=== PATIENT | female | born 1935 | race Caucasian/White ===

== ENCOUNTER 2016-05-11 18:25 | Emergency (ER) | payer OTHER ==
[~2016-05-11] VITALS: Ht 182.9 cm; Wt 96.5 kg
[~2016-05-11 18:25] MED LIST: ALEN70TA2 PO; DONE10TA12 PO; LEVE250T PO; PARO30TA4 PO; WARF5TAB90 PO
[2016-05-11 18:31] VITALS: TEMP 36.8; Ht 182.9 cm; Wt 96.5 kg
[2016-05-11] MEDS ORDERED: ANAS1TAB19 PO (18:59)
[2016-05-11] MEDS ORDERED: SIMV10TA5 PO (18:59)
[2016-05-11 19:00] VITALS: O2SAT 98
[2016-05-11 19:11] LABS: HEMATOCRIT 39.9 % (37-47); MEAN CELL VOLUME 90.7 fL (80-100); MEAN CORPUSCULAR HEMOGLOBIN 31.4 pg (25-34); MEAN CORPUSCULAR HGB CONC 34.6 g/dl (32-36); MEAN PLATELET VOLUME 10.9 fL (7.4-10.4); PLATELET COUNT 281 K/uL (130-400); WHITE BLOOD COUNT 5.11 K/uL (4.8-10.8)
--- NOTE | 2016-05-11 19:20 | DIAGNOSTIC IMAGING REPORT ---
SINGLE VIEW CHEST CLINICAL HISTORY: Fever. Sepsis. FINDINGS: 2 AP, portable, upright chest radiographs are compared to study dated 11/29/2014 and correlated with chest CT dated 12/20/2013. The examination is degraded by portable technique and patient rotation. The heart is enlarged and there is atherosclerotic calcification of the thoracic aorta. The pulmonary vasculature is noncongested. Chronic interstitial thickening and mild nodularity is similar to previous. No airspace consolidation, pleural effusion, or pneumothorax is seen. Tiny calcified granulomas are observed. The skeletal structures are osteopenic. Degenerative changes noted throughout the thoracic spine. IMPRESSION: Cardiac enlargement with no acute cardiopulmonary abnormality. Electronically signed by: Jose Alfredo White M.D. 05/11/2016 7:19 PM Dictated Date/Time: 05/11/2016 7:17 PM
[2016-05-11 19:22] LABS: INR 2.3 (0.9-1.1); PARTIAL THROMBOPLASTIN RATIO 1.4; PROTHROMBIN TIME (PATIENT) 25.6 SECONDS (9.0-12.0)
[2016-05-11 19:36] LABS: ALKALINE PHOSPHATASE 60 U/L (45-117); ALT/SGPT 28 U/L (12-78); AST/SGOT 21 U/L (15-37); BLOOD UREA NITROGEN 9 mg/dl (7-18); CALCIUM 8.1 mg/dl (8.5-10.1); CARBON DIOXIDE 29 mmol/L (21-32); CHLORIDE 108 mmol/L (98-107); CREATININE 0.92 mg/dl (0.60-1.20); GLUCOSE 97 mg/dl (70-99); POTASSIUM 3.7 mmol/L (3.5-5.1); SODIUM 143 mmol/L (136-145)
[2016-05-11] MEDS ORDERED: PARO30TA PO (19:40)
[2016-05-11] MEDS ORDERED: LEVE500T PO (19:49)
[2016-05-11] MEDS ORDERED: WARF5TAB90 PO (19:52)
--- NOTE | 2016-05-11 19:57 | EMERGENCY ROOM VISIT NOTE ---
History Report prepared by Marco: Jasson Linares Under the Supervision of: Dr. Abel Banegas D.O. First contact with patient: 18:49 Chief Complaint: CARDIAC ASSESSMENT Stated Complaint: CHEST PAIN Nursing Triage Summary: Patient c/o intermittent 5.5/10 chest pain that started yesterday on left side of chest. Denies radiation. C/o SOB. Denies diaphoresis, N/V. History of Present Illness The patient is a 80 year old female who presents to the Emergency Room with complaints of intermittent chest pain beginning yesterday. She notes the pain was off and on yesterday, and has had 2 or 3 episodes today. She describes the pain as suddenly sharp, and states it feels like a heart attack, though she denies any history of a heart attack. She locates the pain under her left breast , and notes it radiates up to her neck. The patient adds that she also became lightheaded with the pain. She notes the pain is not initiated with walking, and that it resolves usually after an hour. The patient denies having any pain currently. Source of History: patient Onset: yesterday Position: chest Quality: sharp Timing: intermittent Associated Symptoms: + neck pain Note: The patient notes having lightheadedness. Review of Systems See HPI for pertinent positives & negatives. A total of 10 systems reviewed and were otherwise negative. Past Medical & Surgical Medical Problems: (1) Alzheimer's Disease (2) Anxiety State Nos (3) Breast Neoplasm Nos (4) Chest wall pain (5) Esophageal Reflux (6) Mitral valve prolapse (7) Trans Cereb Ischemia Nos Family History Cancer Diabetes mellitus FH: heart disease FH: lung disease Hypertension Social History Smoking Status: Never Smoker Alcohol Use: none Drug Use: none Marital Status: single Housing Status: lives with family Occupation Status: retired Current/Historical Medications Scheduled Alendronate Sodium (Fosamax), 70 MG PO WK Anastrozole (Arimidex), 1 MG PO DAILY Donepezil Hydrochloride (Aricept), 10 MG PO DAILY Levetiractam (Levetiracetam), 250 MG PO BID Paroxetine Hcl (Paxil), 30 MG PO DAILY Simvastatin (Zocor), 10 MG PO QPM Warfarin Sodium (Coumadin), 5 MG PO FRIDAYS Warfarin Sodium (Coumadin), 2.5 MG PO [id number] Allergies Coded Allergies: No Known Allergies (Unverified , 05/14/15) Physical Exam Vital Signs Date Time Temp Pulse Resp B/P Pulse Ox O2 Delivery O2 Flow Rate FiO2 05/11/16 19:01 61 05/11/16 19:00 98 Room Air 05/11/16 18:50 99 Room Air 05/11/16 18:31 36.8 85 20 109/69 97 Room Air Physical Exam CONSTITUTIONAL/VITAL SIGNS: Reviewed / noted above. GENERAL: Non-toxic in appearance. INTEGUMENTARY: Warm, dry, and [place]. HEAD: Normocephalic. EYES: without scleral icterus or trauma. ENT/OROPHARYNX: clear and moist. LYMPHADENOPATHY/NECK: Is supple without lymphadenopathy or meningismus. RESPIRATORY: Lungs clear and equal. CARDIOVASCULAR: Regular rate and rhythm. GI/ABDOMEN: Soft and nontender. No organomegaly or pulsatile mass. No rebound or guarding. Normal bowel sounds. EXTREMITIES: Warm and well perfused. BACK: No CVA tenderness. NEUROLOGICAL: Intact without focal deficits. PSYCHIATRIC: normal affect. MUSCULOSKELETAL: Normally developed with good muscle tone. Medical Decision & Procedures ER Provider Diagnostic Interpretation: Radiology results as stated below per my review and radiologist interpretation: SINGLE VIEW CHEST FINDINGS: 2 AP, portable, upright chest radiographs are compared to study dated 11/29/2014 and correlated with chest CT dated 12/20/2013. The examination is degraded by portable technique and patient rotation. The heart is enlarged and there is atherosclerotic calcification of the thoracic aorta. The pulmonary vasculature is noncongested. Chronic interstitial thickening and mild nodularity is similar to previous. No airspace consolidation, pleural effusion, or pneumothorax is seen. Tiny calcified granulomas are observed. The skeletal structures are osteopenic. Degenerative changes noted throughout the thoracic spine. IMPRESSION: Cardiac enlargement with no acute cardiopulmonary abnormality. Electronically signed by: Jose Alfredo White M.D. 05/11/2016 7:19 PM Dictated Date/Time: 05/11/2016 7:17 PM Laboratory Results 05/11/16 19:00 Red Blood Count 4.40, Mean Corpuscular Volume 90.7, Mean Corpuscular Hemoglobin 31.4, Mean Corpuscular Hemoglobin Concent 34.6, Mean Platelet Volume 10.9, Neutrophils (%) (Auto) 32.2, Lymphocytes (%) (Auto) 56.2, Monocytes (%) (Auto) 8.8, Eosinophils (%) (Auto) 2.0, Basophils (%) (Auto) 0.6, Neutrophils # (Auto) 1.65, Lymphocytes # (Auto) 2.87, Monocytes # (Auto) 0.45, Eosinophils # (Auto) 0.10, Basophils # (Auto) 0.03 05/11/16 19:00 Test 05/11/16 19:00 White Blood Count 5.11 K/uL (4.8-10.8) Red Blood Count 4.40 M/uL (4.2-5.4) Hemoglobin 13.8 g/dL (12.0-16.0) Hematocrit 39.9 % (37-47) Mean Corpuscular Volume 90.7 fL (80-100) Mean Corpuscular Hemoglobin 31.4 pg (25-34) Mean Corpuscular Hemoglobin Concent 34.6 g/dl (32-36) Platelet Count 281 K/uL (130-400) Mean Platelet Volume 10.9 fL (7.4-10.4) Neutrophils (%) (Auto) 32.2 % Lymphocytes (%) (Auto) 56.2 % Monocytes (%) (Auto) 8.8 % Eosinophils (%) (Auto) 2.0 % Basophils (%) (Auto) 0.6 % Neutrophils # (Auto) 1.65 K/uL (1.4-6.5) Lymphocytes # (Auto) 2.87 K/uL (1.2-3.4) Monocytes # (Auto) 0.45 K/uL (0.11-0.59) Eosinophils # (Auto) 0.10 K/uL (0-0.5) Basophils # (Auto) 0.03 K/uL (0-0.2) RDW Standard Deviation 44.0 fL (36.4-46.3) RDW Coefficient of Variation 13.3 % (11.5-14.5) Immature Granulocyte % (Auto) 0.2 % Immature Granulocyte # (Auto) 0.01 K/uL (0.00-0.02) Prothrombin Time 25.6 SECONDS (9.0-12.0) Prothromb Time International Ratio 2.3 (0.9-1.1) Activated Partial Thromboplast Time 37.4 SECONDS (21.0-31.0) Partial Thromboplastin Ratio 1.4 Anion Gap 6.0 mmol/L (3-11) Est Creatinine Clear Calc Drug Dose 65.6 ml/min Estimated GFR () 69.1 Estimated GFR (Non- 59.6 BUN/Creatinine Ratio 10.0 (10-20) Calcium Level 8.1 mg/dl (8.5-10.1) Total Bilirubin 0.4 mg/dl (0.2-1) Direct Bilirubin mg/dl (0-0.2) Aspartate Amino Transf (AST/SGOT) 21 U/L (15-37) Alanine Aminotransferase (ALT/SGPT) 28 U/L (12-78) Alkaline Phosphatase 60 U/L (45-117) Total Creatine Kinase 66 U/L (26-192) Creatine Kinase MB < 0.5 ng/ml (0.5-3.6) Creatine Kinase MB Ratio (0-3.0) Troponin I < 0.015 ng/ml (0-0.045) Total Protein 8.0 gm/dl (6.4-8.2) Albumin 3.4 gm/dl (3.4-5.0) Lipase 173 U/L (73-393) Chemistry Specimen Hemolysis Laboratory results as stated above per my review. ECG Indication: chest pain Rate (beats per minute): 61 Rhythm: normal sinus, other (sinus arrhythmia) Findings: no acute ischemic change, no ectopy ED Course 1858: Previous medical records were reviewed. The patient was evaluated in room C1B. A complete history and physical examination was performed. 1999: On reevaluation, the patient is doing well. I discussed the results and findings with the patient. She verbalized agreement of the treatment plan. The patient was discharged home. Medical Decision the differential was considered includes acute myocardial infarction, acute coronary syndrome, myocarditis, pericarditis, pericardial effusions /tamponade, esophageal perforation, thoracic aortic dissection, pulmonary embolism, pneumonia, pneumothorax, pancreatitis, shingles, acute cholecystitis, perforated abdominal viscus. This is a 72-year-old female who presents to the ED with a chief complaint of left-sided chest pain. It started yesterday and was off and on all day. She describes it as a sharp pain. Today it happened 2 or 3 times and was also sharp. The patient states that she is currently not having pain. She denies having exertional symptoms. She was a little lightheaded with the sharp chest pain but did not have any shortness of breath and diaphoresis. Her vital signs are normal. She denies previous cardiac history. She shows a normal sinus rhythm. Chest x-ray reveals no acute disease. CBC is normal. Complete metabolic panel was normal. Troponin is negative. INR is 2.3. The patient was told the results of the test. She is felt to be stable for discharge and outpatient follow up. Impression Primary Impression: Precordial chest pain Scribe Attestation The scribe's documentation has been prepared under my direction and personally reviewed by me in its entirety. I confirm that the note above accurately reflects all work, treatment, procedures, and medical decision making performed by me. Departure Information Dispostion Home / Self-Care Referrals Alison Bangura M.D. (MEDICAL) (PCP) Patient Instructions Chest Pain - [facility], [facility] Additional Instructions Follow-up with your doctor for further care and evaluation in 1-2 days. Return to the emergency department for worsening or new symptoms or any concerns. You have been examined and treated today on an emergency basis only. This is not a substitute for, or an effort to provide, complete comprehensive medical care. It is impossible to recognize and treat all injuries or illnesses in a single emergency department visit. It is therefore important that you follow up closely with your doctor. Call as soon as possible for an appointment.
[2016-05-11 19:59] LABS: BASO % 0.6 %; BASO ABS # 0.03 K/uL (0-0.2); COMPLETE YES; IG% 0.2 %; LYMPH % 56.2 %; LYMPH ABS # 2.87 K/uL (1.2-3.4); MONO % 8.8 %; NEUT % 32.2 %
[2016-05-11 20:06] VITALS: BP 150/90; PULSE 74; O2SAT 98
== END 2016-05-11 20:07 | disposition home or self-care (01) ==
LOC: C.EDB 18:28 → C.EDC 20:07
DX: R07.2 Precordial pain (principal); I34.1 Nonrheumatic mitral (valve) prolapse; K21.9 Gastro-esophageal reflux disease without esophagitis; G30.9 Alzheimer's disease, unspecified; F02.80 Dementia in other diseases classified elsewhere, unspecified severity, without behavioral disturbance, psychotic disturbance, mood disturbance, and anxiety; F41.9 Anxiety disorder, unspecified; Z86.73 Personal history of transient ischemic attack (TIA), and cerebral infarction without residual deficits; Z85.3 Personal history of malignant neoplasm of breast; Z79.01 Long term (current) use of anticoagulants; Z79.899 Other long term (current) drug therapy; Z80.9 Family history of malignant neoplasm, unspecified; Z83.3 Family history of diabetes mellitus; Z82.49 Family history of ischemic heart disease and other diseases of the circulatory system

== ENCOUNTER 2016-10-11 13:08 | Emergency (ER) | payer OTHER ==
[~2016-10-11] VITALS: Ht 182.9 cm; Wt 97.8 kg
[~2016-10-11 13:08] MED LIST changes: +ANAS1TAB19 PO; -LEVE250T PO; +LEVE500T PO; +PARO30TA PO; -PARO30TA4 PO; +SIMV10TA5 PO
[2016-10-11] MEDS ORDERED: SODIUM CHLORIDE 0.9% 1000ML 1,000 ML IV STA (13:16)
[2016-10-11] MEDS ORDERED: METOCLOPRAMIDE HCL INJ 5 MG/ML 2 ML VIAL IV STA (13:16)
[2016-10-11 13:19] VITALS: TEMP 36.6; Ht 182.9 cm; Wt 97.8 kg
[2016-10-11 13:42] VITALS: O2SAT 97
--- NOTE | 2016-10-11 14:04 | DIAGNOSTIC IMAGING REPORT ---
CHEST ONE VIEW PORTABLE HISTORY: 81 years-old Female CHEST PAIN COMPARISON: Portable chest radiograph 05/11/2016 TECHNIQUE: Portable upright AP view of the chest FINDINGS: Cardiac silhouette is upper limits of normal, unchanged. There is atherosclerosis of the aorta. No pneumothorax or large pleural effusion. There is subsegmental atelectasis of the left lung base. The bones are grossly intact. IMPRESSION: Subsegmental atelectasis of the left lung base with otherwise unremarkable chest. The above report was generated using voice recognition software. It may contain grammatical, syntax or spelling errors. Electronically signed by: Conrad Brewer M.D. 10/11/2016 2:02 PM Dictated Date/Time: 10/11/2016 2:01 PM
[2016-10-11 14:05] LABS: BASO % 0.8 %; BASO ABS # 0.04 K/uL (0-0.2); COMPLETE YES; HEMATOCRIT 39.3 % (37-47); IG% 0.2 %; LYMPH % 48.5 %; LYMPH ABS # 2.45 K/uL (1.2-3.4); MEAN CELL VOLUME 92.9 fL (80-100); MEAN CORPUSCULAR HGB CONC 33.3 g/dl (32-36); MEAN PLATELET VOLUME 11.3 fL (7.4-10.4); MONO % 11.5 %; PLATELET COUNT 259 K/uL (130-400); RED BLOOD COUNT 4.23 M/uL (4.2-5.4); WHITE BLOOD COUNT 5.05 K/uL (4.8-10.8)
--- NOTE | 2016-10-11 14:08 | DIAGNOSTIC IMAGING REPORT ---
CERVICAL SPINE W/O CT DOSE: 949.50 mGy.cm CLINICAL HISTORY: 81 years-old Female with Neck pain after remote fall. COMPARISON: CT cervical spine 03/25/2015. TECHNIQUE: Multiple axial CT images of the cervical spine were obtained without contrast. A dose lowering technique was utilized adhering to the principles of ALARA. FINDINGS: Vertebral body heights and alignment are normal. No fracture or subluxation is identified. Multilevel degenerative changes are present. Mild posterior intervertebral disc space narrowing is seen at C5-C6 and C6-C7. Moderate to advanced degenerative changes involve C1-C2. Multilevel moderate to severe facet arthropathy is present. No severe central canal stenosis. There is however varying degrees of neural foraminal narrowing which is mostly mild to moderate. There is atherosclerotic plaquing of the carotid bulbs. Nodularity of the thyroid is noted with 1.1 cm inferior left thyroid nodule. Biapical pleural parenchymal scarring is noted. IMPRESSION: 1. No acute cervical spine fracture or dislocation identified. 2. Multilevel degenerative changes of the cervical spine. 3. Additional incidental findings as above. The above report was generated using voice recognition software. It may contain grammatical, syntax or spelling errors. Electronically signed by: Conrad Brewer M.D. 10/11/2016 2:06 PM Dictated Date/Time: 10/11/2016 2:02 PM
--- NOTE | 2016-10-11 14:09 | DIAGNOSTIC IMAGING REPORT ---
HEAD CT NONCONTRAST CT DOSE: HISTORY: Headache on coumadin TECHNIQUE: Multiaxial CT images of the head were performed without the use of intravenous contrast. Automated exposure control was utilized for this study. A dose lowering technique was utilized adhering to the principles of ALARA. Comparison: Head CT 11/29/2014. Findings: The paranasal sinuses and mastoid air cells are clear. The calvarium and skull base are intact. There is no mass, hematoma, midline shift, acute infarct. White matter hypodensity is nonspecific but suggestive of microvascular ischemic change. The ventricles and sulci demonstrate mild age-related involutional changes. Impression: No acute intracranial abnormality. Electronically signed by: Mann Carranza M.D. 10/11/2016 2:07 PM Dictated Date/Time: 10/11/2016 2:02 PM
[2016-10-11 14:14] LABS: INR 1.9 (0.9-1.1); PROTHROMBIN TIME (PATIENT) 21.2 SECONDS (9.0-12.0)
[2016-10-11 14:22] LABS: BLOOD UREA NITROGEN 14 mg/dl (7-18); BUN/CREATININE RATIO 16.7 (10-20); CALCIUM 8.6 mg/dl (8.5-10.1); CARBON DIOXIDE 25 mmol/L (21-32); CHLORIDE 111 mmol/L (98-107); CREATININE 0.86 mg/dl (0.60-1.20); GLUCOSE 86 mg/dl (70-99); POTASSIUM 3.8 mmol/L (3.5-5.1); SODIUM 140 mmol/L (136-145)
--- NOTE | 2016-10-11 14:32 | EMERGENCY ROOM VISIT NOTE ---
History Report prepared by Marco: Ugo Villar Under the Supervision of: Dr. Salo Cantu M.D. First contact with patient: 13:10 Chief Complaint: HEAD PAIN Stated Complaint: HEAD PAIN History of Present Illness The patient is a 81 year old female who presents to the Emergency Room by EMS with complaints of a persistent posterior headache beginning yesterday. Her headache began with gradual onset. Per EMS, the patient is currently being treated for Alzheimer's. They state that the patient has described her pain as "dull", but now describes it as "sharp". They state that the patient was walking around the [email or web address] today. The patient's pain is worsened with moving her head. The patient's family states that the patient appeared somewhat pale with increased shakiness shortly prior to arrival as well. She states that the patient has had increased fatigue recently. The patient denies any neurologic symptoms, but her family feels that she has been "more disoriented than usual" recently. She denies any vomiting, rashes or tick bites, diarrhea, fevers, cough, or congestion. She notes that she gets headaches every day, and takes Advil nearly every day. The patient is on Coumadin. She states that her current headache feels different than her typical headaches. She currently complains of neck pain and nausea. EMS states that the patient may have had a syncopal episode a little over a week ago. She was not seen by a physician for this episode. The patient's family states that the patient was found in an alley near her [place] by a neighbor, and was down for an unknown amount of time. The patient states that her increased fatigue began around the time she passed out last week. Source of History: patient, family, EMS Onset: Yesterday Position: head (posterior) Quality: sharp (currently), dull (previously) Timing: other (persistent) Modifying Factors (Worsening): movement (of her head) Associated Symptoms: + neck pain, + nausea, + fatigue, No fevers, No cough, No vomiting, No diarrhea, No rash Review of Systems See HPI for pertinent positives and negatives. A total of ten systems were reviewed and were otherwise negative. Past Medical & Surgical Medical Problems: (1) Alzheimer's Disease (2) Anxiety State Nos (3) Breast Neoplasm Nos (4) Chest wall pain (5) Esophageal Reflux (6) Mitral valve prolapse (7) Trans Cereb Ischemia Nos Family History Cancer Diabetes mellitus FH: heart disease FH: lung disease Hypertension Social History Smoking Status: Never Smoker Alcohol Use: none Drug Use: none Marital Status: single Housing Status: lives with family Occupation Status: retired Current/Historical Medications Scheduled Alendronate Sodium (Fosamax), 70 MG PO WK Anastrozole (Arimidex), 1 MG PO DAILY Donepezil Hydrochloride (Aricept), 10 MG PO DAILY Levetiractam (Levetiracetam), 250 MG PO BID Paroxetine Hcl (Paxil), 30 MG PO DAILY Simvastatin (Zocor), 10 MG PO QPM Warfarin Sodium (Coumadin), 5 MG PO FRIDAYS Warfarin Sodium (Coumadin), 2.5 MG PO [id number] Allergies Coded Allergies: No Known Allergies (Unverified , 10/11/16) Physical Exam Vital Signs Date Time Temp Pulse Resp B/P (MAP) Pulse Ox O2 Delivery O2 Flow Rate FiO2 10/11/16 17:33 59 18 147/89 98 10/11/16 15:27 58 16 167/82 96 Room Air 10/11/16 14:30 57 18 156/83 96 Room Air 10/11/16 13:42 54 10/11/16 13:42 97 Room Air 10/11/16 13:19 36.6 53 16 191/83 97 Room Air Physical Exam GENERAL: Awake, alert, well-appearing, in no distress HENT: Normocephalic, atraumatic. Oropharynx unremarkable. Dry mucous membranes. Mild tenderness at the base of the right occiput and upper right paraspinal cervical spine. ROM limited secondary to pain. EYES: Normal conjunctiva. Sclera non-icteric. Subtle left ptosis. EOMI. NECK: Supple. No nuchal rigidity. FROM. No JVD. RESPIRATORY: Clear to auscultation. CARDIAC: Regular rate, normal rhythm. Extremities warm and well perfused. Pulses equal. ABDOMEN: Soft, non-distended. No tenderness to palpation. No rebound or guarding. No masses. RECTAL: Deferred. MUSCULOSKELETAL: Chest examination reveals no tenderness. The back is symmetrical on inspection without obvious abnormality. There is no CVA tenderness to palpation. No joint edema. LOWER EXTREMITIES: Calves are equal size bilaterally and non-tender. No edema. No discoloration. NEURO: Normal sensorium. No sensory or motor deficits noted. SKIN: No rash or jaundice noted. Medical Decision & Procedures ER Provider Diagnostic Interpretation: Radiology results as stated below per my review and radiologist interpretation: CERVICAL SPINE W/O FINDINGS: Vertebral body heights and alignment are normal. No fracture or subluxation is identified. Multilevel degenerative changes are present. Mild posterior intervertebral disc space narrowing is seen at C5-C6 and C6-C7. Moderate to advanced degenerative changes involve C1-C2. Multilevel moderate to severe facet arthropathy is present. No severe central canal stenosis. There is however varying degrees of neural foraminal narrowing which is mostly mild to moderate. There is atherosclerotic plaquing of the carotid bulbs. Nodularity of the thyroid is noted with 1.1 cm inferior left thyroid nodule. Biapical pleural parenchymal scarring is noted. IMPRESSION: 1. No acute cervical spine fracture or dislocation identified. 2. Multilevel degenerative changes of the cervical spine. 3. Additional incidental findings as above. The above report was generated using voice recognition software. It may contain grammatical, syntax or spelling errors. Electronically signed by: Conrad Brewer M.D. HEAD CT NONCONTRAST Findings: The paranasal sinuses and mastoid air cells are clear. The calvarium and skull base are intact. There is no mass, hematoma, midline shift, acute infarct. White matter hypodensity is nonspecific but suggestive of microvascular ischemic change. The ventricles and sulci demonstrate mild age-related involutional changes. Impression: No acute intracranial abnormality. Electronically signed by: Mann Carranza M.D CHEST ONE VIEW PORTABLE FINDINGS: Cardiac silhouette is upper limits of normal, unchanged. There is atherosclerosis of the aorta. No pneumothorax or large pleural effusion. There is subsegmental atelectasis of the left lung base. The bones are grossly intact. IMPRESSION: Subsegmental atelectasis of the left lung base with otherwise unremarkable chest. The above report was generated using voice recognition software. It may contain grammatical, syntax or spelling errors. Electronically signed by: Conrad Brewer M.D. Laboratory Results 10/11/16 13:40 Red Blood Count 4.23, Mean Corpuscular Volume 92.9, Mean Corpuscular Hemoglobin 31.0, Mean Corpuscular Hemoglobin Concent 33.3, Mean Platelet Volume 11.3, Neutrophils (%) (Auto) 37.0, Lymphocytes (%) (Auto) 48.5, Monocytes (%) (Auto) 11.5, Eosinophils (%) (Auto) 2.0, Basophils (%) (Auto) 0.8, Neutrophils # (Auto ) 1.87, Lymphocytes # (Auto) 2.45, Monocytes # (Auto) 0.58, Eosinophils # (Auto ) 0.10, Basophils # (Auto) 0.04 10/11/16 13:40 Test 10/11/16 13:40 10/11/16 15:33 White Blood Count 5.05 K/uL (4.8-10.8) Red Blood Count 4.23 M/uL (4.2-5.4) Hemoglobin 13.1 g/dL (12.0-16.0) Hematocrit 39.3 % (37-47) Mean Corpuscular Volume 92.9 fL (80-100) Mean Corpuscular Hemoglobin 31.0 pg (25-34) Mean Corpuscular Hemoglobin Concent 33.3 g/dl (32-36) Platelet Count 259 K/uL (130-400) Mean Platelet Volume 11.3 fL (7.4-10.4) Neutrophils (%) (Auto) 37.0 % Lymphocytes (%) (Auto) 48.5 % Monocytes (%) (Auto) 11.5 % Eosinophils (%) (Auto) 2.0 % Basophils (%) (Auto) 0.8 % Neutrophils # (Auto) 1.87 K/uL (1.4-6.5) Lymphocytes # (Auto) 2.45 K/uL (1.2-3.4) Monocytes # (Auto) 0.58 K/uL (0.11-0.59) Eosinophils # (Auto) 0.10 K/uL (0-0.5) Basophils # (Auto) 0.04 K/uL (0-0.2) RDW Standard Deviation 44.8 fL (36.4-46.3) RDW Coefficient of Variation 13.1 % (11.5-14.5) Immature Granulocyte % (Auto) 0.2 % Immature Granulocyte # (Auto) 0.01 K/uL (0.00-0.02) Prothrombin Time 21.2 SECONDS (9.0-12.0) Prothromb Time International Ratio 1.9 (0.9-1.1) Anion Gap 4.0 mmol/L (3-11) Est Creatinine Clear Calc Drug Dose 69.5 ml/min Estimated GFR () 74.5 Estimated GFR (Non- 64.3 BUN/Creatinine Ratio 16.7 (10-20) Calcium Level 8.6 mg/dl (8.5-10.1) Troponin I < 0.015 ng/ml (0-0.045) Lyme Disease IgG Antibody NEG (NEG) Lyme Disease IgM Antibody NEG (NEG) Urine Color YELLOW Urine Appearance CLEAR (CLEAR) Urine pH 6.0 (4.5-7.5) Urine Specific [place] 1.012 (1.000-1.030) Urine Protein NEG (NEG) Urine Glucose (UA) NEG (NEG) Urine Ketones NEG (NEG) Urine Occult Blood NEG (NEG) Urine Nitrite NEG (NEG) Urine Bilirubin NEG (NEG) Urine Urobilinogen NEG (NEG) Urine Leukocyte Esterase NEG (NEG) Laboratory results reviewed by me Medications Administered Medications (Trade) Dose Ordered Sig/[place] Route Start Time Stop Time Status Last Admin Dose Admin Sodium Chloride 1,000 ml @ 125 mls/hr Q8H STAT IV 10/11/16 13:16 10/11/16 18:36 DC 10/11/16 14:04 125 MLS/HR Metoclopramide HCl (Reglan Inj) 10 mg NOW STAT IV 10/11/16 13:16 10/11/16 13:32 DC 10/11/16 14:03 10 MG Dexamethasone Sodium Phosphate (Decadron Inj) 10 mg NOW ONCE IV 10/11/16 16:45 10/11/16 16:46 DC 10/11/16 16:46 10 MG ECG Indication: syncope Rate (beats per minute): 72 Rhythm: normal sinus Findings: no acute ischemic change, other (Normal axis. ) ED Course 1314: The patient was evaluated in room C11B. A complete history and physical exam was performed. 1316: Ordered Reglan Inj 10 mg IV, Sodium Chloride 1000 ml @ 125 mls/hr IV. 1615: I reassessed the patient. Her pain is unchanged. 1645: Ordered Decadron Inj 10 mg IV. 1720: I reevaluated the patient. She would like to go home. Discussed results and discharge instructions: she verbalized understanding and agreement. The patient is ready for discharge. Medical Decision I reviewed the patient's past medical history, medications, and the nursing notes as described above. Triage Nursing notes reviewed. The patient's presentation and history were concerning for tension headache, migraine, ICH, dehydration, electrolyte abnormality, cervical fracture, worsening dementia, and CVA. Patient is a 81-year-old woman with a past medical history of Alzheimer's, PE on Coumadin, hypertension presents emergency Department with headache that began last night with slow onset at the base of her occiput that progressively has worsened throughout the day per history of present illness. All of the patient is well-appearing, in no acute distress. Afebrile stable vital signs. On exam the patient has a very subtle left lid ptosis that the patient's daughter believes is new although the patient's daughter lives in [place] and does not see the patient regularly. Otherwise the patient is neurologically intact. Testing the patient had a unwitnessed fall, syncope last week without any medical follow-up CT scan was done which was unremarkable. Moreover CT of the cervical spine in the setting of neck pain was also unremarkable for any acute findings. Patient does report prior history of recurrent headaches but these are typically frontal. Should symptoms today can be consistent with a tension headache with paraspinal tenderness extending to the lower right occiput. Patient being treated with IV fluids and Reglan. Otherwise EKG was unremarkable. Labs including troponin also negative. UA negative. Patient still with pain and so given dexamethasone with good effect and resolution of her pain. Findings reviewed and plan for follow-up d/w patient. Patient agreeable and d/c'd per discharge instructions. Medication Reconcilliation Current Medication List: was personally reviewed by me Blood Pressure Screening Patient's blood pressure: Elevated blood pressure Blood pressure disposition: Referred to PCP Impression Primary Impression: Tension headache Additional Impression: Torticollis, unspecified Scribe Attestation The scribe's documentation has been prepared under my direction and personally reviewed by me in its entirety. I confirm that the note above accurately reflects all work, treatment, procedures, and medical decision making performed by me. Departure Information Dispostion Home / Self-Care Referrals Alison Bangura M.D. (MEDICAL) (PCP) Patient Instructions Headaches Tension, My [facility], Torticollis Additional Instructions Please follow up with your primary care physician in the next 1-3 days for re- evaluation and possible physical therapy referral. You should also have your INR rechecked since you were given a steroid medication today for your pain. Otherwise, your exam, lab results, and CT scan did not show signs of an emergent condition at this time. Acetaminophen as needed for pain. Heating pad for 20 minute intervals throughout the day for additional muscle relaxation. Return to the emergency department for worsening symptoms as described in the accompanying instructions. Problem Qualifiers
[2016-10-11 15:07] LABS: LYME DISEASE AB IGG NEG (NEG); LYME DISEASE AB IGM NEG (NEG)
[2016-10-11 15:53] LABS: URINE APPEARANCE CLEAR (CLEAR); URINE BILIRUBIN NEG (NEG); URINE COLOR YELLOW; URINE NITRITE NEG (NEG); URINE SPECIFIC GRAVITY 1.012 (1.000-1.030); UROBILINOGEN NEG (NEG); ZZUR CULT IF INDIC CLEAN CATCH NO
[2016-10-11 15:59] LABS: MANUAL MICROSCOPIC REQUIRED? NO; REVIEW REQ? NO
[2016-10-11] MEDS ORDERED: DEXAMETHASONE SOD INJ 10 MG/ML VIAL IV ONE (16:45)
[2016-10-11 17:33] VITALS: BP 147/89; PULSE 59; O2SAT 98
== END 2016-10-11 17:34 | disposition home or self-care (01) ==
LOC: EDBD 13:08 → C.EDC 13:09
DX: G44.209 Tension-type headache, unspecified, not intractable (principal); M43.6 Torticollis; G30.9 Alzheimer's disease, unspecified; F02.80 Dementia in other diseases classified elsewhere, unspecified severity, without behavioral disturbance, psychotic disturbance, mood disturbance, and anxiety; F41.9 Anxiety disorder, unspecified; K21.9 Gastro-esophageal reflux disease without esophagitis; G45.9 Transient cerebral ischemic attack, unspecified; Z83.3 Family history of diabetes mellitus; Z82.49 Family history of ischemic heart disease and other diseases of the circulatory system; Z79.01 Long term (current) use of anticoagulants

== ENCOUNTER 2017-03-29 21:53 | Observation (INO) | payer OTHER ==
[~2017-03-29] VITALS: Ht 182.9 cm; Wt 96.1 kg
--- NOTE | 2017-03-29 22:44 | EMERGENCY ROOM VISIT NOTE ---
History Report prepared by Marco: Tapan Hernandez Under the Supervision of: Dr. Salo Cantu M.D. First contact with patient: 22:31 Chief Complaint: CHEST PAIN Stated Complaint: CHEST PAIN Nursing Triage Summary: patient called EMS tonight after having c/o chest pain and SOB since noon today that did not improve. patient was given 324mg aspirin and one dose of nitroglycerin and stated that pain resolved along with SOB. patient was then brought to ED . denies any complaints of chest pain or SOB upon arrival. has hx of PE. pain prior to arrival was a 7/10 then was 0/10 after medication. History of Present Illness The patient is a 81 year old female who presents to the Emergency Room with complaints of resolved chest pain that started around 1800 tonight while sitting in her chair, and she describes the pain as a pressure. The patient's family was called around 1930, and the pain resolved upon arrival after getting some nitro. She states that the pain came on before she ate anything. The patient denies any fever, chills, cough, congestion, and vomiting, though she was nauseous earlier. She states that she has no history of cardiac diseases. She is currently on Coumadin for PEs, and she states that she is not currently on a water pill. Source of History: patient, family Onset: 1800 Position: chest Quality: pressure Timing: resolved Associated Symptoms: + nausea, No fevers, No chills, No cough, No vomiting Review of Systems See HPI for pertinent positives and negatives. A total of ten systems were reviewed and were otherwise negative. Past Medical & Surgical Medical Problems: (1) Alzheimer's Disease (2) Anxiety State Nos (3) Breast Neoplasm Nos (4) Chest wall pain (5) Esophageal Reflux (6) Mitral valve prolapse (7) Trans Cereb Ischemia Nos Family History Cancer Diabetes mellitus FH: heart disease FH: lung disease Hypertension Social History Smoking Status: Never Smoker Alcohol Use: none Drug Use: none Marital Status: single Housing Status: lives with family Occupation Status: retired Current/Historical Medications Scheduled Anastrozole (Arimidex), 1 MG PO DAILY Donepezil Hydrochloride (Aricept), 10 MG PO DAILY Levetiractam (Levetiracetam), 250 MG PO BID Paroxetine Hcl (Paxil), 30 MG PO DAILY Warfarin Sodium (Coumadin), 5 MG PO FRIDAYS Warfarin Sodium (Coumadin), 2.5 MG PO [id number] Allergies Coded Allergies: No Known Allergies (Unverified , 03/29/17) Physical Exam Vital Signs Date Time Temp Pulse Resp B/P (MAP) Pulse Ox O2 Delivery O2 Flow Rate FiO2 03/30/17 01:05 62 20 144/69 98 Room Air 03/29/17 23:40 55 20 140/63 93 Room Air 03/29/17 22:05 95 Room Air 03/29/17 22:00 93 Room Air 03/29/17 22:00 60 03/29/17 22:00 36.8 72 18 129/67 95 Room Air Physical Exam GENERAL: well-appearing, in no distress HENT: Normocephalic, atraumatic. Dry mucous membranes. Oropharynx unremarkable. EYES: Normal conjunctiva. Sclera non-icteric. NECK: Supple. No nuchal rigidity. FROM. No JVD. RESPIRATORY: Clear to auscultation. CARDIAC: Regular rate, normal rhythm. Extremities warm and well perfused. Pulses equal. ABDOMEN: Soft, non-distended. No tenderness to palpation. No rebound or guarding. No masses. RECTAL: Deferred. MUSCULOSKELETAL: Chest examination reveals no tenderness. The back is symmetrical on inspection without obvious abnormality. There is no CVA tenderness to palpation. No joint edema. LOWER EXTREMITIES: Calves are equal size bilaterally and non-tender. No edema. No discoloration. NEURO: Normal sensorium. No sensory or motor deficits noted. SKIN: No rash or jaundice noted. Medical Decision & Procedures ER Provider Diagnostic Interpretation: X-ray: Per my interpretation, radiologist review. Chest: Normal mediastinum no gross infiltrates. Laboratory Results 03/29/17 21:28 Red Blood Count 4.53, Mean Corpuscular Volume 91.6, Mean Corpuscular Hemoglobin 30.7, Mean Corpuscular Hemoglobin Concent 33.5, Mean Platelet Volume 11.3 03/29/17 21:28 Test 03/29/17 21:28 03/29/17 22:50 White Blood Count 5.85 K/uL (4.8-10.8) Red Blood Count 4.53 M/uL (4.2-5.4) Hemoglobin 13.9 g/dL (12.0-16.0) Hematocrit 41.5 % (37-47) Mean Corpuscular Volume 91.6 fL (80-100) Mean Corpuscular Hemoglobin 30.7 pg (25-34) Mean Corpuscular Hemoglobin Concent 33.5 g/dl (32-36) Platelet Count 304 K/uL (130-400) Mean Platelet Volume 11.3 fL (7.4-10.4) RDW Standard Deviation 45.5 fL (36.4-46.3) RDW Coefficient of Variation 13.8 % (11.5-14.5) Neutrophils % (Manual) 43.6 % Lymphocytes % (Manual) 36.5 % Variant Lymphocytes % (manual) 13.0 % Monocytes % (Manual) 5.2 % Eosinophils % (Manual) 1.7 % Neutrophils # (Manual) 2.55 K/uL (1.4-6.5) Total Absolute Neutrophils 2.55 K/uL (1.4-6.5) Lymphocytes # (Manual) 2.14 K/uL (1.2-3.4) Absolute Variant Lymphocytes 0.76 K/uL Total Absolute Lymphocytes 2.90 K/uL (1.2-3.4) Monocytes # (Manual) 0.30 K/uL (0.11-0.59) Eosinophils # (Manual) 0.10 K/uL (0-0.5) Red Blood Cell Morphology Unremarkable Prothrombin Time 22.2 SECONDS (9.0-12.0) Prothromb Time International Ratio 2.1 (0.9-1.1) Anion Gap 5.0 mmol/L (3-11) Est Creatinine Clear Calc Drug Dose 55.9 ml/min Estimated GFR () 57.2 Estimated GFR (Non- 49.3 BUN/Creatinine Ratio 17.0 (10-20) Calcium Level 8.5 mg/dl (8.5-10.1) Magnesium Level 2.1 mg/dl (1.8-2.4) Total Bilirubin 0.7 mg/dl (0.2-1) Direct Bilirubin 0.1 mg/dl (0-0.2) Aspartate Amino Transf (AST/SGOT) 19 U/L (15-37) Alanine Aminotransferase (ALT/SGPT) 23 U/L (12-78) Alkaline Phosphatase 63 U/L (45-117) Troponin I < 0.015 ng/ml (0-0.045) Pro-B-Type Natriuretic Peptide 159 pg/ml (0-1800) Total Protein 8.4 gm/dl (6.4-8.2) Albumin 3.4 gm/dl (3.4-5.0) Lipase 403 U/L (73-393) Influenza Type A Antigen Neg for Influ A (NEG) Influenza Type B Antigen Neg for Influ B (NEG) Laboratory results reviewed by me ECG Indication: chest pain Rate (beats per minute): 61 Rhythm: normal sinus Findings: no acute ischemic change, left axis deviation Comparison ECG Date: 10/15/16 Change: no significant change Change: Patient's electrocardiogram interpreted by me. ED Course 223: The patient was evaluated in room C4. A complete history and physical exam was performed. 5: Upon reexamination, the patient was doing well. I discussed the test results and treatment plan with her. The patient will be evaluated for further management. 0006: I discussed the patient [facility] She will evaluate the patient for further treatment. Medical Decision I reviewed the patient's past medical history, medications, and the nursing notes as described above. Differential diagnosis: Etiologies such as cardiac ischemia, aortic dissection, pulmonary embolism, pneumonia, pneumothorax, musculoskeletal, infections, pericarditis, myocarditis , esophageal rupture, gastrointestinal, as well as others were entertained. The patient is a 81-year-old woman with a past medical history of Alzheimer's dementia who presents emergency Department with substernal chest pain that occurred prior to arrival with unclear onset and duration of symptoms given the patient's dementia however per family members they were called at 7 PM regarding the patient's chest pain per hpi. EMS was called and the patient was given aspirin and nitroglycerin with resolution of her symptoms prior to arrival. Arrival the patient is well-appearing, in no acute distress, afebrile stable vital signs. EKG unremarkable without any signs of acute ischemia. Troponin negative. Labs otherwise unremarkable. Chest x-ray negative for gross infiltrates. Given the patient's report of substernal chest heaviness which was subsequently relieved by aspirin and nitroglycerin patient will have a heart score of 4, moderate risk. Thus will admit the patient for further cardiac r/o. Case was d/w Dr. Juárez [facility] hospitalist, who will admit the patient for further management. Medication Reconcilliation Current Medication List: was personally reviewed by me Blood Pressure Screening Patient's blood pressure: Normal blood pressure Consults Time Called: [phone] Consulting Physician: Dr. Franck Hahn Hospitalist Returned Call: [phone] I discussed the patient with Dr. Franck Villegas - She will evaluate the patient for further treatment. Impression Primary Impression: Substernal precordial chest pain Scribe Attestation The scribe's documentation has been prepared under my direction and personally reviewed by me in its entirety. I confirm that the note above accurately reflects all work, treatment, procedures, and medical decision making performed by me. Departure Information Dispostion Being Evaluated By Hospitalist Referrals Alison Bangura M.D. (MEDICAL) (PCP) Patient Instructions My [facility]
[2017-03-29 23:17] LABS: HEMATOCRIT 41.5 % (37-47); HEMOGLOBIN 13.9 g/dL (12.0-16.0); MEAN CELL VOLUME 91.6 fL (80-100); MEAN CORPUSCULAR HEMOGLOBIN 30.7 pg (25-34); MEAN CORPUSCULAR HGB CONC 33.5 g/dl (32-36); MEAN PLATELET VOLUME 11.3 fL (7.4-10.4); PLATELET COUNT 304 K/uL (130-400); RED CELL DISTRIBUTION WIDTH CV 13.8 % (11.5-14.5); RED CELL DISTRIBUTION WIDTH SD 45.5 fL (36.4-46.3); WHITE BLOOD COUNT 5.85 K/uL (4.8-10.8)
[2017-03-29 23:24] LABS: INR 2.1 (0.9-1.1)
[2017-03-29 23:25] LABS: ALBUMIN 3.4 gm/dl (3.4-5.0); ALT/SGPT 23 U/L (12-78); AST/SGOT 19 U/L (15-37); BLOOD UREA NITROGEN 18 mg/dl (7-18); CALCIUM 8.5 mg/dl (8.5-10.1); CARBON DIOXIDE 26 mmol/L (21-32); CREATININE 1.07 mg/dl (0.60-1.20); GLUCOSE 109 mg/dl (70-99); LIPASE 403 U/L (73-393); POTASSIUM 3.6 mmol/L (3.5-5.1); SODIUM 138 mmol/L (136-145)
[2017-03-29 23:30] LABS: ALKALINE PHOSPHATASE 63 U/L (45-117); TOTAL PROTEIN 8.4 gm/dl (6.4-8.2)
[2017-03-29 23:30] LABS: INFLUENZA B ANTIGEN Neg for Influ B (NEG)
[2017-03-30 01:35] VITALS: BP 147/69; PULSE 57; TEMP 36.7; O2SAT 94; Ht 182.9 cm; Wt 96.1 kg
[2017-03-30] MEDS ORDERED: POLYETHYLENE (MIRALAX) 17 GM PACK PO PRN (02:00)
[2017-03-30] MEDS ORDERED: NITROGLYCERIN 0.4 MG SL PER TAB CHARGE SL PRN (02:00)
[2017-03-30] MEDS ORDERED: ACETAMINOPHEN 325 MG TAB PO PRN (02:00)
[2017-03-30] MEDS ORDERED: MoRPHine SULFATE 2 MG/ML CARP IV PRN (02:00)
[2017-03-30] MEDS ORDERED: ONDANSETRON INJ 2 MG/ML 2 ML VIAL IV PRN (02:00)
[2017-03-30] MEDS ORDERED: SIMV10TA5 PO (02:10)
--- NOTE | 2017-03-30 02:23 | History and Physical ---
History & Physical Date & Time of Service: Mar 30, 2017 at 02:14 Chief Complaint: Chest Pain Primary Care Physician: Alison Bangura M.D. (MEDICAL) History of Present Illness Source: patient, clinic records, hospital records 81 yo F who presents to the ER via EMS for chest pain. The pain was describes as a pressure and was centrally located in her chest. It came on while she was sitting watching TV. She notified her family who called EMS around 130. She was given Nitro and ASA 324 on scene with complete resolution of her pain which did not return. She was stable at that time and continues to be stable in the ER. Her pain is reproducible on exam. It was not radiating, but she does describe feeling this pain after her walks that she takes regularly. She notes the pain comes on after her walk is complete and occurs roughly 3 times in a week. This is a new development over the past month. She has no h/o CAD and denies pain prior to this. She is a non-smoker and has no other risk factors aside from age. She is functional at baseline and lives alone. Associated symptoms with the pain include some diaphoresis and nausea but she denies any SOB , lightheadedness or vomiting. ROS was otherwise negative. She has a h/o unprovoked PE diagnosed 3-4 years ago and is on coumadin for this now. Past Medical/Surgical History Medical Problems: (1) Alzheimer disease Status: Chronic (3) Anxiety Status: Chronic (4) Breast cancer Status: Chronic (5) Chest wall pain Status: Resolved (6) Depression Status: Chronic (7) Esophageal Reflux Status: Chronic (8) History of pulmonary embolism Status: Chronic (9) Hx MRSA infection Status: Chronic (10) director long term care (current) use of anticoagulants Status: Chronic (11) Mitral valve prolapse Status: Resolved (12) Osteoporosis Status: Chronic (13) Seizure disorder Status: Chronic Surgical Problems: (1) H/O total mastectomy of left breast Status: Chronic (2) Status post ASPEN-BSO Status: Chronic Family History Cancer Diabetes mellitus FH: heart disease FH: lung disease Hypertension Social History Smoking Status: Never Smoker Smokeless Tobacco Use: No Alcohol Use: none Drug Use: none Marital Status: single Housing status: lives alone Occupational Status: retired Immunizations History of Influenza Vaccine: Yes Influenza Vaccine Date: Nov 25, 2015 History of Tetanus Vaccine?: No History of Pneumococcal: Yes Pneumococcal Date: Dec 04, 2014 History of Hepatitis B Vaccine: No Multi-Drug Resistant Organisms History of MDRO: Yes Type of MDRO: MRSA Allergies Coded Allergies: No Known Allergies (Unverified , 03/29/17) Home Medications Scheduled Anastrozole (Arimidex), 1 MG PO DAILY Donepezil Hydrochloride (Aricept), 10 MG PO DAILY Levetiractam (Levetiracetam), 250 MG PO BID Paroxetine Hcl (Paxil), 30 MG PO DAILY Simvastatin (Zocor), 1 TAB PO HS Warfarin Sodium (Coumadin), 5 MG PO FRIDAYS Warfarin Sodium (Coumadin), 2.5 MG PO [id number] Review of Systems AT least ten systems were reviewed and negative except as indicated in HPI. Physical Exam Vital Signs Date Time Temp Pulse Resp B/P (MAP) Pulse Ox O2 Delivery O2 Flow Rate FiO2 03/30/17 01:05 62 20 144/69 98 Room Air 03/29/17 23:40 55 20 140/63 93 Room Air 03/29/17 22:05 95 Room Air 03/29/17 22:00 93 Room Air 03/29/17 22:00 60 03/29/17 22:00 36.8 72 18 129/67 95 Room Air General Appearance: WD/WN, no apparent distress Head: normocephalic, atraumatic Eyes: normal inspection, PERRL, sclerae normal ENT: normal ENT inspection, pharynx normal Neck: supple, no adenopathy, trachea midline Respiratory/Chest: lungs clear, normal breath sounds, no respiratory distress, no accessory muscle use, + pertinent finding (Chest TTP in parasternal area) Cardiovascular: regular rate, rhythm, no edema, no gallop, no JVD, no murmur, normal peripheral pulses Abdomen/GI: normal bowel sounds, non tender, soft Extremities/Musculoskelatal: normal inspection, no pedal edema, normal range of motion 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, no motor/sensory deficits, alert, normal mood/affect, oriented x 3 Skin: normal color, warm/dry Diagnostics Laboratory Results 03/29/17 21:28 Red Blood Count 4.53, Mean Corpuscular Volume 91.6, Mean Corpuscular Hemoglobin 30.7, Mean Corpuscular Hemoglobin Concent 33.5, Mean Platelet Volume 11.3 03/29/17 21:28 Test 03/29/17 21:28 03/29/17 22:50 White Blood Count 5.85 K/uL (4.8-10.8) Red Blood Count 4.53 M/uL (4.2-5.4) Hemoglobin 13.9 g/dL (12.0-16.0) Hematocrit 41.5 % (37-47) Mean Corpuscular Volume 91.6 fL (80-100) Mean Corpuscular Hemoglobin 30.7 pg (25-34) Mean Corpuscular Hemoglobin Concent 33.5 g/dl (32-36) Platelet Count 304 K/uL (130-400) Mean Platelet Volume 11.3 fL (7.4-10.4) RDW Standard Deviation 45.5 fL (36.4-46.3) RDW Coefficient of Variation 13.8 % (11.5-14.5) Neutrophils % (Manual) 43.6 % Lymphocytes % (Manual) 36.5 % Variant Lymphocytes % (manual) 13.0 % Monocytes % (Manual) 5.2 % Eosinophils % (Manual) 1.7 % Neutrophils # (Manual) 2.55 K/uL (1.4-6.5) Total Absolute Neutrophils 2.55 K/uL (1.4-6.5) Lymphocytes # (Manual) 2.14 K/uL (1.2-3.4) Absolute Variant Lymphocytes 0.76 K/uL Total Absolute Lymphocytes 2.90 K/uL (1.2-3.4) Monocytes # (Manual) 0.30 K/uL (0.11-0.59) Eosinophils # (Manual) 0.10 K/uL (0-0.5) Red Blood Cell Morphology Unremarkable Prothrombin Time 22.2 SECONDS (9.0-12.0) Prothromb Time International Ratio 2.1 (0.9-1.1) Anion Gap 5.0 mmol/L (3-11) Est Creatinine Clear Calc Drug Dose 55.9 ml/min Estimated GFR () 57.2 Estimated GFR (Non- 49.3 BUN/Creatinine Ratio 17.0 (10-20) Calcium Level 8.5 mg/dl (8.5-10.1) Magnesium Level 2.1 mg/dl (1.8-2.4) Total Bilirubin 0.7 mg/dl (0.2-1) Direct Bilirubin 0.1 mg/dl (0-0.2) Aspartate Amino Transf (AST/SGOT) 19 U/L (15-37) Alanine Aminotransferase (ALT/SGPT) 23 U/L (12-78) Alkaline Phosphatase 63 U/L (45-117) Troponin I < 0.015 ng/ml (0-0.045) Pro-B-Type Natriuretic Peptide 159 pg/ml (0-1800) Total Protein 8.4 gm/dl (6.4-8.2) Albumin 3.4 gm/dl (3.4-5.0) Lipase 403 U/L (73-393) Influenza Type A Antigen Neg for Influ A (NEG) Influenza Type B Antigen Neg for Influ B (NEG) Results Past 24 Hours Test 03/29/17 21:28 03/29/17 22:50 Range/Units White Blood Count 5.85 4.8-10.8 K/uL Red Blood Count 4.53 4.2-5.4 M/uL Hemoglobin 13.9 12.0-16.0 g/dL Hematocrit 41.5 37-47 % Mean Corpuscular Volume 91.6 80-100 fL Mean Corpuscular Hemoglobin 30.7 25-34 pg Mean Corpuscular Hemoglobin Concent 33.5 32-36 g/dl Platelet Count 304 130-400 K/uL Mean Platelet Volume 11.3 7.4-10.4 fL RDW Standard Deviation 45.5 36.4-46.3 fL RDW Coefficient of Variation 13.8 11.5-14.5 % Neutrophils % (Manual) 43.6 % Lymphocytes % (Manual) 36.5 % Variant Lymphocytes % (manual) 13.0 % Monocytes % (Manual) 5.2 % Eosinophils % (Manual) 1.7 % Neutrophils # (Manual) 2.55 1.4-6.5 K/uL Total Absolute Neutrophils 2.55 1.4-6.5 K/uL Lymphocytes # (Manual) 2.14 1.2-3.4 K/uL Absolute Variant Lymphocytes 0.76 K/uL Total Absolute Lymphocytes 2.90 1.2-3.4 K/uL Monocytes # (Manual) 0.30 0.11-0.59 K/uL Eosinophils # (Manual) 0.10 0-0.5 K/uL Red Blood Cell Morphology Unremarkable Prothrombin Time 22.2 9.0-12.0 SECONDS Prothromb Time International Ratio 2.1 0.9-1.1 Sodium Level 138 136-145 mmol/L Potassium Level 3.6 3.5-5.1 mmol/L Chloride Level 107 98-107 mmol/L Carbon Dioxide Level 26 21-32 mmol/L Anion Gap 5.0 3-11 mmol/L Blood Urea Nitrogen 18 7-18 mg/dl Creatinine 1.07 0.60-1.20 mg/dl Est Creatinine Clear Calc Drug Dose 55.9 ml/min Estimated GFR () 57.2 Estimated GFR (Non- 49.3 BUN/Creatinine Ratio 17.0 10-20 Random Glucose 109 70-99 mg/dl Calcium Level 8.5 8.5-10.1 mg/dl Magnesium Level 2.1 1.8-2.4 mg/dl Total Bilirubin 0.7 0.2-1 mg/dl Direct Bilirubin 0.1 0-0.2 mg/dl Aspartate Amino Transf (AST/SGOT) 19 15-37 U/L Alanine Aminotransferase (ALT/SGPT) 23 12-78 U/L Alkaline Phosphatase 63 45-117 U/L Troponin I < 0.015 0-0.045 ng/ml Pro-B-Type Natriuretic Peptide 159 0-1800 pg/ml Total Protein 8.4 6.4-8.2 gm/dl Albumin 3.4 3.4-5.0 gm/dl Lipase 403 73-393 U/L Influenza Type A Antigen Neg for Influ A NEG Influenza Type B Antigen Neg for Influ B NEG Diagnostic Radiology CHEST ONE VIEW PORTABLE CLINICAL HISTORY: 89 years-old Female presenting with CHEST PAIN. TECHNIQUE: Portable upright AP view of the chest was obtained. COMPARISON: 08/15/2016. FINDINGS: Atherosclerosis of aortic arch. Cardiac silhouette enlarged. Lungs and pleural spaces clear. Osteopenia suspected. Upper abdomen normal. IMPRESSION: 1. Cardiomegaly. Otherwise no acute cardiopulmonary disease. EKG SB, LAFB Impression Assessment and Plan 81 yo F with chest pain 1. Chest pain-rule out [place], ASA 325 given, nitro and morphine PRN pain overnight , ASA 81 continued, cont simvastatin 10. EKG sinus and non-ischemic. Trend serial enzymes. Cards consult to assist with risk stratification given history. 2. Alzheimer's dementia-very functional and reliable historian, cont donepezil 3. HLP-simvastatin, recheck lipids in am 4. h/o PE on alf coumadin, therapeutic 5. h/o MRSA in nares-contact precautions DVT proph-warfarin Full Code Dispo-to telemetry DO [facility] Level of Care Telemetry Resuscitation Status FULL RESUSCITATION VTE Prophylaxis VTE Risk Assessment Done? Y/N: Yes Risk Level: Moderate Given or contraindicated: Warfarin (Coumadin)
[2017-03-30] MEDS ORDERED: IV FLUIDS COMPLETED PRN (02:45)
[2017-03-30 03:37] LABS: CHOLESTEROL 180 mg/dl (0-200); LDL CHOLESTEROL CALCULATED 117 mg/dl
[2017-03-30 04:05] VITALS: BP 114/64; PULSE 61; TEMP 36.9; O2SAT 99
--- NOTE | 2017-03-30 06:37 | DIAGNOSTIC IMAGING REPORT ---
CHEST ONE VIEW PORTABLE CLINICAL HISTORY: Atypical chest pain COMPARISON STUDY: October 11, 2016 FINDINGS: The cardiac and mediastinal contours are normal. There is no evidence of focal pulmonary consolidation. There is no evidence of failure. No pleural effusions are visualized.[ There is minor left basilar atelectasis/scarring. IMPRESSION: No active disease in the chest. Electronically signed by: Lawrence Sánchez M.D. 03/30/2017 6:36 AM Dictated Date/Time: 03/30/2017 6:36 AM
[2017-03-30 07:13] VITALS: BP 128/78; PULSE 58; TEMP 36.7; O2SAT 96
[2017-03-30] MEDS ORDERED: ANASTROZOLE 1 MG TAB PO SCH (09:00)
[2017-03-30] MEDS ORDERED: DONEPEZIL HCL 10 MG TAB PO SCH (09:00)
[2017-03-30] MEDS ORDERED: ASPIRIN 81 MG ECTAB PO SCH (09:00)
[2017-03-30] MEDS ORDERED: PAROXETINE 20 MG TAB PO SCH (09:00)
[2017-03-30] MEDS ORDERED: LEVETIRACETAM 250 MG TAB PO SCH (09:00)
[2017-03-30] MEDS ORDERED: ENOXAPARIN 40 MG/0.4 ML SYR SC SCH (09:00)
[2017-03-30] MEDS ORDERED: METOPROLOL TARTRATE 1 MG/ML VIAL ONE ×2 (12:38→13:39)
[2017-03-30] MEDS ORDERED: ATROPINE SULFATE 0.1 MG/ML 5ML SYR ONE (12:38)
[2017-03-30] MEDS ORDERED: DOBUTamine HCL 12.5 MG/ML 20 ML VIAL ONE (12:38)
--- NOTE | 2017-03-30 14:59 | Cardiology Progress Note ---
Cardiology Progress Note Date of Service Mar 30, 2017. Cardiology Progress Note Dobutamine stress test negative for ischemia. Diet advanced. Further recommendations to follow after her complete resting echo is reviewed.
[2017-03-30] MEDS ORDERED: PERFLUTREN LIPID MICROSPHERE (DEFINITY) IV ONE (15:06)
--- NOTE | 2017-03-30 15:55 | DOBUTAMINE ECHO ---
*NOTICE TO RECEIVING CONSTITUTION PARTY AGENCY This information is strictly Confidential and protected under [place] law. [place] law prohibits you from making any further disclosure of this information unless further disclosure is expressly permitted by the written consent of the person to whom it pertains or is authorized by law. A general authorization for the release of medical or other information is not sufficient for this purpose. Hospital accepts no responsibility if the information is made available to any other person, INCLUDING THE PATIENT. Interpretation Summary * Name: SAMANTHA BAXTER Study Date: 03/30/2017 11:37 AM BP: 125/79 mmHg * Patient Location: C.2T\S\S232\S\1 HR: 63 * : 1935 (M/d/yyy) Gender: Female Height: 72 in * Age: 81 yrs Ethnicity: CA Weight: 211 lb * Ordering Physician: Pih Wood * Referring Physician: Self, Referred * Performed By: Mikhail Farah RCS * * Reason For Study: CHEST PAIN * BSA: 2.2 m2 * * -- Conclusions -- * STRESS STUDY: * Normal pharmacologic stress echocardiogram. No echocardiographic or EKG evidence of myocardial ischemia having achieved heart rate adequate for diagnostic purposes. * No symptoms suggestive of angina were induced. * Transient supraventricular tachycardia was observed at peak pharmacologic stress that resolved in the post stress recovery interval. * RESTING STUDY: * There is mild concentric left ventricular hypertrophy. * Ejection Fraction = 60-65%. * There is no significant valvular heart disease. Procedure Details * DOBUTAMINE ECHO, CPT#47033 * ECHO COLOR FLOW, CPT #85770 * ECHO DOPPLER, CPT #96133 * A contrast injection of Definity was performed to improve assessment of LV function. * Contrast was injected into an intravenous site in the right arm. * One vial of Definity ultrasound contrast was diluted in normal saline to a total volume of 10 ml. A total of '4' ml of solution was administered during imaging. * Lot # [id number] of Definity utilized for procedure. * Expiration date EB. Left Ventricle * The left ventricle is normal in size. * There is mild concentric left ventricular hypertrophy. * Left ventricular systolic function is normal. * Ejection Fraction = 60-65%. * Resting wall motion: Normal. Stress wall motion: Appropriate increase in Left ventricular systolic function and decrease in cavity size. No stress induced segmental wall motion abnormalities. Right Ventricle * The right ventricle is normal in size and function. Atria * The left atrial size is normal. * Right atrial size is normal. * No ASD detected; PFO is not assessed. Mitral Valve * The mitral valve is normal. * There is no mitral valve stenosis. * Significant mitral regurgitation is absent. Tricuspid Valve * The tricuspid valve is normal. * There is no tricuspid stenosis. * Significant tricuspid regurgitation is absent. * Doppler findings do not suggest pulmonary hypertension. Aortic Valve * The aortic valve is trileaflet. * Aortic stenosis is absent. * There is no significant aortic regurgitation. Pulmonic Valve * The pulmonary valve is not well seen, but the Doppler examination is normal without significant regurgitation or stenosis. Great Vessels * The aortic root and proximal ascending aorta are normal sized. Pericardium * There is no pericardial effusion. Stress Parameters * The baseline EKG revealed sinsus rhythm at 63 beats per minute with nonspecific diffuse T wave flattening. * The stress ECG response was normal * Transient supraventricualar tachycardia was observied at peak pharmacologic stress that resolved in the post stress recovery interval. * The stress portion of this study was personally supervised by the undersigned interpreting physician. * Rest heart rate was '63' BPM. * Rest blood pressure was '125/79' * Maximum heart rate achieved was 169 bpm. * Maximum heart rate was 119 % of maximum age-predicted heart rate. * Maximum blood pressure was '131/48' * Maximum Dobutamine infusion rate was '30' mcg/kg/min. * A total of .5 mg of intravenous Atropine was used to supplement Dobutamine for heart rate response. * Dobutamine infusion was terminated due to achieving target heart rate * A total of 15 mg of IV Metoprolol was administered to reverse Dobutamine-induced tachycardia. * The patient did not exhibit any symptoms during drug infusion. * Normal blood pressure response to exercise. Left Ventricular Diastolic Function * Grade I diastolic dysfunction, (abnormal relaxation pattern). MMode 2D Measurements and Calculations IVSd 1.2 cm IVSs 1.5 cm LVIDd 5.4 cm LVIDs 3.5 cm LVPWd 1.1 cm LVPWs 1.6 cm IVS/LVPW 1.1 FS 34.2 % EDV(Teich) 140.4 ml ESV(Teich) 52.4 ml EF(Teich) 62.7 % EDV(cubed) 156.2 ml ESV(cubed) 44.4 ml EF(cubed) 71.5 % % IVS thick 21.3 % % LVPW thick 41.3 % LV mass(C)d 254.2 grams LV mass(C)dI 116.6 grams/m\S\2 LV mass(C)s 203.1 grams LV mass(C)sI 93.2 grams/m\S\2 SV(Teich) 88.1 ml SI(Teich) 40.4 ml/m\S\2 SV(cubed) 111.7 ml SI(cubed) 51.3 ml/m\S\2 Ao root diam 4.0 cm Ao root area 12.8 cm\S\2 ACS 2.0 cm LA dimension 3.7 cm asc Aorta Diam 3.6 cm LA/Ao 0.92 EDV(MOD-sp4) 96.0 ml ESV(MOD-sp4) 25.7 ml EF(MOD-sp4) 73.3 % EDV(MOD-sp2) 80.1 ml ESV(MOD-sp2) 29.3 ml EF(MOD-sp2) 63.4 % SV(MOD-sp4) 70.4 ml SI(MOD-sp4) 32.3 ml/m\S\2 SV(MOD-sp2) 50.8 ml SI(MOD-sp2) 23.3 ml/m\S\2 Doppler Measurements and Calculations MV E max yumiko 48.3 cm/sec MV A max yumiko 77.1 cm/sec MV E/A 0.63 MV P1/2t max yumiko 52.1 cm/sec MV P1/2t 90.0 msec MVA(P1/2t) 2.4 cm\S\2 MV dec slope 169.4 cm/sec\S\2 MV dec time 0.31 sec Ao V2 max 81.1 cm/sec Ao max PG 2.6 mmHg Ao max PG (full) 0.82 mmHg LV V1 max PG 1.8 mmHg LV V1 max 67.6 cm/sec PA V2 max 64.5 cm/sec PA max PG 1.7 mmHg TR max yumiko 191.8 cm/sec
[2017-03-30 15:59] VITALS: BP 108/57; PULSE 62; TEMP 37.1; O2SAT 97
[2017-03-30] MEDS ORDERED: WARFARIN SOD 5 MG TAB PO SCH (16:00)
--- NOTE | 2017-03-30 16:09 | Cardiology Consultation ---
Cardiology Consultation Date of Consultation: Mar 30, 2017 History of Present Illness Alem Wilson is a 81 year old female seen in cardiology consultation per the request of Dr. Juárez. Patient presented to the emergency room early this a.m. seen and she was watching television and had acute onset of shortness chest discomfort. She states the discomfort was still present but time EMS arrived at her house consistently improved after nitroglycerin and aspirin while she was in the emergency room. Patient's cardiac enzymes were negative on serial basis EKG tracings were negative with nonspecific diffuse T-wave flattening. I had initially assessed the patient early this morning on telemetry unit and she had been chest pain-free and slept well overnight. She has a history of unprovoked pulmonary embolism 3-4 years ago and is on chronic Coumadin anticoagulation. She has a history of Alzheimer's disease she actually provides a very good history and is conversant and aware. 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 A total of 10 systems reviewed and were otherwise negative. Allergies Coded Allergies: No Known Allergies (Unverified , 03/29/17) Medications Reported Home Medications Medications Dose Route/Sig Max Daily Dose Days Date Category Dose Instructions Zocor (Simvastatin) 10 Mg Tab 1 Tab PO HS 30 03/30/17 Reported Coumadin (Warfarin Sodium) 5 Mg Tab 2.5 Mg PO [id number] 05/11/16 Reported take all days but fridays Levetiracetam (Levetiractam) 500 Mg Tab 250 Mg PO BID 05/11/16 Reported Paxil (Paroxetine Hcl) 30 Mg Tab 30 Mg PO DAILY 3/23/17 Reported Aricept (Donepezil Hydrochloride) 10 Mg Tab 10 Mg PO DAILY 11/29/14 Reported Coumadin (Warfarin Sodium) 5 Mg Tab 5 Mg PO Fridays12/20/13 Reported Arimidex (Anastrozole) 1 Mg Tab 1 Mg PO DAILY 04/02/13 Reported Physical Exam Vital Signs (Last 8hrs): Last 8 Hrs Date Time Temp Pulse Resp B/P (MAP) Pulse Ox O2 Delivery O2 Flow Rate FiO2 03/30/17 15:59 37.1 62 20 108/57 (74) 97 03/30/17 12:00 Room Air General Appearance: Alert and Oriented x3. NAD. Head: Normocephalic Atraumatic. Eyes: PERRLA, EOMI, conjunctiva and sclera clear Neck: Supple. No carotid bruits noted. No JVD. No HJD. Respiratory: Breath sounds clear to auscultation bilaterally. No w/r/r. Cardiovascular: Reg rate and rhythm. S1 and S2 noted. No murmurs, rubs, gallops. PMI non displace. Abdomen: Normal bowel sounds, soft nontender. no abdominal bruits. Extremities: No edema, no clubbing or cyanosis. distal pulses 2/4 bilaterally. Neuro: No focal deficits. Psychiatric: Normal affect. Data Last 24 Hours Test 03/29/17 21:28 03/29/17 22:50 03/30/17 02:47 03/30/17 09:03 White Blood Count 5.85 K/uL Red Blood Count 4.53 M/uL Hemoglobin 13.9 g/dL Hematocrit 41.5 % Mean Corpuscular Volume 91.6 fL Mean Corpuscular Hemoglobin 30.7 pg Mean Corpuscular Hemoglobin Concent 33.5 g/dl Platelet Count 304 K/uL Mean Platelet Volume 11.3 fL RDW Standard Deviation 45.5 fL RDW Coefficient of Variation 13.8 % Neutrophils % (Manual) 43.6 % Lymphocytes % (Manual) 36.5 % Variant Lymphocytes % (manual) 13.0 % Monocytes % (Manual) 5.2 % Eosinophils % (Manual) 1.7 % Neutrophils # (Manual) 2.55 K/uL Total Absolute Neutrophils 2.55 K/uL Lymphocytes # (Manual) 2.14 K/uL Absolute Variant Lymphocytes 0.76 K/uL Total Absolute Lymphocytes 2.90 K/uL Monocytes # (Manual) 0.30 K/uL Eosinophils # (Manual) 0.10 K/uL Red Blood Cell Morphology Unremarkable Prothrombin Time 22.2 SECONDS Prothromb Time International Ratio 2.1 Sodium Level 138 mmol/L Potassium Level 3.6 mmol/L Chloride Level 107 mmol/L Carbon Dioxide Level 26 mmol/L Anion Gap 5.0 mmol/L Blood Urea Nitrogen 18 mg/dl Creatinine 1.07 mg/dl Est Creatinine Clear Calc Drug Dose 55.9 ml/min Estimated GFR () 57.2 Estimated GFR (Non- 49.3 BUN/Creatinine Ratio 17.0 Random Glucose 109 mg/dl Calcium Level 8.5 mg/dl Magnesium Level 2.1 mg/dl Total Bilirubin 0.7 mg/dl Direct Bilirubin 0.1 mg/dl Aspartate Amino Transf (AST/SGOT) 19 U/L Alanine Aminotransferase (ALT/SGPT) 23 U/L Alkaline Phosphatase 63 U/L Troponin I < 0.015 ng/ml < 0.015 ng/ml < 0.015 ng/ml Pro-B-Type Natriuretic Peptide 159 pg/ml Total Protein 8.4 gm/dl Albumin 3.4 gm/dl Lipase 403 U/L Influenza Type A Antigen Neg for Influ A Influenza Type B Antigen Neg for Influ B Triglycerides Level 179 mg/dl Cholesterol Level 180 mg/dl HDL Cholesterol 27 mg/dl LDL Cholesterol, Calculated 117 mg/dl VLDL Cholesterol, Calculated 36 mg/dl Cholesterol/HDL Ratio 6.7 EKG tracings performed on arrival to the emergency room and again this morning reveals sinus rhythm with nonspecific diffuse T-wave and ST flattening. Assessment & Plan Impression: 81-year-old female presented with chest discomfort. Negative EKG, negative cardiac enzymes 3 Discussion and recommendations: After the patient was assessed first thing this morning rituals were made for her dobutamine stress echocardiogram. The resting portion of the stress test revealed mild concentric left ventricular hypertrophy with normal resting wall motion and normal LVEF. There is a nonischemic response to pharmacologic stress test with patient having met and exceeded target heart rate. Transient supraventricular tachycardia was noted during the dobutamine stress test which was felt to be medication induced and resolved in the post-pharmacologic stress recovery interval. No symptoms suggestive of angina were induced. Regarding her history of pulmonary embolism, her INR is within therapeutic range at 2.1. Patient is stable from a cardiac standpoint for discharge. She continue ongoing risk factor management including low-dose aspirin and simvastatin which she already takes at home.
--- NOTE | 2017-03-30 16:37 | Progress Note ---
Internal Med Progress Note Date of Service: Mar 30, 2017. Provider Documentation: SUBJECTIVE: Patient did not have symptoms after stress test. denies chest pain or shortness of breath OBJECTIVE: General Appearance: no apparent distress Head: normocephalic, atraumatic Eyes: normal inspection, PERRL, sclerae normal ENT: normal ENT inspection, pharynx normal Neck: supple, no adenopathy, trachea midline Respiratory/Chest: lungs clear, normal breath sounds, no respiratory distress, no accessory muscle use Cardiovascular: regular rate, rhythm, no edema, no gallop, no JVD, no murmur, normal peripheral pulses Abdomen/GI: normal bowel sounds, non tender, soft Extremities/Musculoskelatal: normal inspection, no pedal edema, normal range of motion 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 The pain was describes as a pressure and was centrally located in her chest. It came on while she was sitting watching TV. She notified her family who called EMS around 130. She was given Nitro and ASA 324 on scene with complete resolution of her pain which did not return Troponins negative x 3 STRESS STUDY: * Normal pharmacologic stress echocardiogram. No echocardiographic or EKG evidence of myocardial ischemia having achieved heart rate adequate for diagnostic purposes. * No symptoms suggestive of angina were induced. * Transient supraventricualar tachycardia was observied at peak pharmacologic stress that resolved in the post stress recovery interval. * RESTING STUDY: * There is mild concentric left ventricular hypertrophy. * Ejection Fraction = 60-65%. * There is no significant valvular heart disease. Diagnosis of: Non Cardiac Chest pain Discharge appointments Patient to be discharged with prescription for omeprazole in case symptoms were from gastroesophageal reflux disease (GERD). Patient is asked to return to the emergency room if sudden worsening of chest pain symptoms, shortness of breath, fever, or loss of consciousness Follow up appointments 04/04/2017 2:00 PM Alison Bangura MD [facility] 04/09/2017 9:30 AM [facility]10/2017 7:00 AM [facility] [place] Vital Signs: Date Time Temp Pulse Resp B/P (MAP) Pulse Ox O2 Delivery O2 Flow Rate FiO2 03/30/17 16:00 Room Air 03/30/17 15:59 37.1 62 20 108/57 (74) 97 03/30/17 12:00 Room Air 03/30/17 08:00 Room Air 03/30/17 07:13 36.7 58 16 128/78 (95) 96 Room Air 03/30/17 04:05 36.9 61 16 114/64 (81) 99 03/30/17 04:00 Room Air 03/30/17 01:35 36.7 57 18 147/69 94 Room Air 03/30/17 01:05 62 20 144/69 98 Room Air 03/29/17 23:40 55 20 140/63 93 Room Air 03/29/17 22:05 95 Room Air 03/29/17 22:00 93 Room Air 03/29/17 22:00 60 03/29/17 22:00 36.8 72 18 129/67 95 Room Air Lab Results: Results Past 24 Hours Test 03/29/17 21:28 03/29/17 22:50 03/30/17 02:47 03/30/17 09:03 Range/Units White Blood Count 5.85 4.8-10.8 K/uL Red Blood Count 4.53 4.2-5.4 M/uL Hemoglobin 13.9 12.0-16.0 g/dL Hematocrit 41.5 37-47 % Mean Corpuscular Volume 91.6 80-100 fL Mean Corpuscular Hemoglobin 30.7 25-34 pg Mean Corpuscular Hemoglobin Concent 33.5 32-36 g/dl Platelet Count 304 130-400 K/uL Mean Platelet Volume 11.3 7.4-10.4 fL RDW Standard Deviation 45.5 36.4-46.3 fL RDW Coefficient of Variation 13.8 11.5-14.5 % Neutrophils % (Manual) 43.6 % Lymphocytes % (Manual) 36.5 % Variant Lymphocytes % (manual) 13.0 % Monocytes % (Manual) 5.2 % Eosinophils % (Manual) 1.7 % Neutrophils # (Manual) 2.55 1.4-6.5 K/uL Total Absolute Neutrophils 2.55 1.4-6.5 K/uL Lymphocytes # (Manual) 2.14 1.2-3.4 K/uL Absolute Variant Lymphocytes 0.76 K/uL Total Absolute Lymphocytes 2.90 1.2-3.4 K/uL Monocytes # (Manual) 0.30 0.11-0.59 K/uL Eosinophils # (Manual) 0.10 0-0.5 K/uL Red Blood Cell Morphology Unremarkable Prothrombin Time 22.2 9.0-12.0 SECONDS Prothromb Time International Ratio 2.1 0.9-1.1 Sodium Level 138 136-145 mmol/L Potassium Level 3.6 3.5-5.1 mmol/L Chloride Level 107 98-107 mmol/L Carbon Dioxide Level 26 21-32 mmol/L Anion Gap 5.0 3-11 mmol/L Blood Urea Nitrogen 18 7-18 mg/dl Creatinine 1.07 0.60-1.20 mg/dl Est Creatinine Clear Calc Drug Dose 55.9 ml/min Estimated GFR () 57.2 Estimated GFR (Non- 49.3 BUN/Creatinine Ratio 17.0 10-20 Random Glucose 109 70-99 mg/dl Calcium Level 8.5 8.5-10.1 mg/dl Magnesium Level 2.1 1.8-2.4 mg/dl Total Bilirubin 0.7 0.2-1 mg/dl Direct Bilirubin 0.1 0-0.2 mg/dl Aspartate Amino Transf (AST/SGOT) 19 15-37 U/L Alanine Aminotransferase (ALT/SGPT) 23 12-78 U/L Alkaline Phosphatase 63 45-117 U/L Troponin I < 0.015 < 0.015 < 0.015 0-0.045 ng/ml Pro-B-Type Natriuretic Peptide 159 0-1800 pg/ml Total Protein 8.4 6.4-8.2 gm/dl Albumin 3.4 3.4-5.0 gm/dl Lipase 403 73-393 U/L Influenza Type A Antigen Neg for Influ A NEG Influenza Type B Antigen Neg for Influ B NEG Triglycerides Level 179 0-150 mg/dl Cholesterol Level 180 0-200 mg/dl HDL Cholesterol 27 mg/dl LDL Cholesterol, Calculated 117 mg/dl VLDL Cholesterol, Calculated 36 mg/dl Cholesterol/HDL Ratio 6.7
[2017-03-30] MEDS ORDERED: OMEP20CA9 PO (16:57)
[2017-03-30 17:07] VITALS: BP 108/57; PULSE 62; TEMP 37.1; O2SAT 97
--- NOTE | 2017-03-30 17:07 | Discharge Instructions ---
Discharge Instructions Date of Service Mar 30, 2017. Admission Reason for Admission: Chest Pain Discharge Discharge Diagnosis / Problem: non cardiac chest pain Discharge Goals Goal(s): Decrease discomfort, Improve function Activity Recommendations Activity Limitations: per Instructions/Follow-up section Shower/Bathe: no limitations . Instructions / Follow-Up Instructions / Follow-Up 81 yo F who presents to the ER via EMS for chest pain. The pain was describes as a pressure and was centrally located in her chest. It came on while she was sitting watching TV. She notified her family who called EMS around 130. She was given Nitro and ASA 324 on scene with complete resolution of her pain which did not return Troponins negative x 3 STRESS STUDY: * Normal pharmacologic stress echocardiogram. No echocardiographic or EKG evidence of myocardial ischemia having achieved heart rate adequate for diagnostic purposes. * No symptoms suggestive of angina were induced. * Transient supraventricualar tachycardia was observied at peak pharmacologic stress that resolved in the post stress recovery interval. * RESTING STUDY: * There is mild concentric left ventricular hypertrophy. * Ejection Fraction = 60-65%. * There is no significant valvular heart disease. Diagnosis of: Non Cardiac Chest pain Discharge appointments Patient to be discharged with prescription for omeprazole in case symptoms were from gastroesophageal reflux disease (GERD). Patient is asked to return to the emergency room if sudden worsening of chest pain symptoms, shortness of breath, fever, or loss of consciousness Follow up appointments 04/04/2017 2:00 PM Alison Bangura MD [facility] 04/09/2017 9:30 AM [facility] [place] 04/10/2017 7:00 AM [facility] [place] Current Hospital Diet Patient's current hospital diet: AHA Diet (Heart Healthy) Discharge Diet Recommended Diet: AHA Diet (Heart Healthy) Pending Studies Studies pending at discharge: no Laboratory Results 03/29/17 21:28 Red Blood Count 4.53, Mean Corpuscular Volume 91.6, Mean Corpuscular Hemoglobin 30.7, Mean Corpuscular Hemoglobin Concent 33.5, Mean Platelet Volume 11.3 03/29/17 21:28 Test 03/29/17 21:28 03/29/17 22:50 03/30/17 02:47 03/30/17 09:03 White Blood Count 5.85 K/uL (4.8-10.8) Red Blood Count 4.53 M/uL (4.2-5.4) Hemoglobin 13.9 g/dL (12.0-16.0) Hematocrit 41.5 % (37-47) Mean Corpuscular Volume 91.6 fL (80-100) Mean Corpuscular Hemoglobin 30.7 pg (25-34) Mean Corpuscular Hemoglobin Concent 33.5 g/dl (32-36) Platelet Count 304 K/uL (130-400) Mean Platelet Volume 11.3 fL (7.4-10.4) RDW Standard Deviation 45.5 fL (36.4-46.3) RDW Coefficient of Variation 13.8 % (11.5-14.5) Neutrophils % (Manual) 43.6 % Lymphocytes % (Manual) 36.5 % Variant Lymphocytes % (manual) 13.0 % Monocytes % (Manual) 5.2 % Eosinophils % (Manual) 1.7 % Neutrophils # (Manual) 2.55 K/uL (1.4-6.5) Total Absolute Neutrophils 2.55 K/uL (1.4-6.5) Lymphocytes # (Manual) 2.14 K/uL (1.2-3.4) Absolute Variant Lymphocytes 0.76 K/uL Total Absolute Lymphocytes 2.90 K/uL (1.2-3.4) Monocytes # (Manual) 0.30 K/uL (0.11-0.59) Eosinophils # (Manual) 0.10 K/uL (0-0.5) Red Blood Cell Morphology Unremarkable Prothrombin Time 22.2 SECONDS (9.0-12.0) Prothromb Time International Ratio 2.1 (0.9-1.1) Anion Gap 5.0 mmol/L (3-11) Est Creatinine Clear Calc Drug Dose 55.9 ml/min Estimated GFR () 57.2 Estimated GFR (Non- 49.3 BUN/Creatinine Ratio 17.0 (10-20) Calcium Level 8.5 mg/dl (8.5-10.1) Magnesium Level 2.1 mg/dl (1.8-2.4) Total Bilirubin 0.7 mg/dl (0.2-1) Direct Bilirubin 0.1 mg/dl (0-0.2) Aspartate Amino Transf (AST/SGOT) 19 U/L (15-37) Alanine Aminotransferase (ALT/SGPT) 23 U/L (12-78) Alkaline Phosphatase 63 U/L (45-117) Pro-B-Type Natriuretic Peptide 159 pg/ml (0-1800) Total Protein 8.4 gm/dl (6.4-8.2) Albumin 3.4 gm/dl (3.4-5.0) Lipase 403 U/L (73-393) Influenza Type A Antigen Neg for Influ A (NEG) Influenza Type B Antigen Neg for Influ B (NEG) Triglycerides Level 179 mg/dl (0-150) Cholesterol Level 180 mg/dl (0-200) HDL Cholesterol 27 mg/dl LDL Cholesterol, Calculated 117 mg/dl VLDL Cholesterol, Calculated 36 mg/dl Cholesterol/HDL Ratio 6.7 Troponin I < 0.015 ng/ml (0-0.045) Lipid Panel Test 03/30/17 02:47 Range/Units Triglycerides Level 179 H 0-150 mg/dl Cholesterol Level 180 0-200 mg/dl HDL Cholesterol 27 mg/dl Cholesterol/HDL Ratio 6.7 LDL Cholesterol, Calculated 117 mg/dl Medical Emergencies . Who to Call and When: Medical Emergencies: If at any time you feel your situation is an emergency, please call 911 immediately. . Non-Emergent Contact Non-Emergency issues call your: Primary Care Provider Call Non-Emergent contact if: you have any medication questions . . "Provider Documentation" section prepared by Carroll Hay. . VTE Core Measure Inpt VTE Proph given/why not?: Warfarin (Coumadin)
--- NOTE | 2017-03-30 17:09 | Discharge Summary ---
Discharge Summary Date of Service Mar 30, 2017. Discharge Summary Admission Date: Mar 30, 2017 at 00:51 Discharge Date: Mar 30, 2017 Discharge Disposition: Home Principal Diagnosis: non cardiac chest pain Medication Reconciliation New Medications: Omeprazole (Prilosec) 20 Mg Cap 20 MG PO DAILY for 30 Days, #30 CAP Continued Medications: Anastrozole (Arimidex) 1 Mg Tab 1 MG PO DAILY Donepezil Hydrochloride (Aricept) 10 Mg Tab 10 MG PO DAILY Levetiractam (Levetiracetam) 500 Mg Tab 250 MG PO BID, #30 Paroxetine Hcl (Paxil) 30 Mg Tab 30 MG PO DAILY, TAB Simvastatin (Zocor) 10 Mg Tab 1 TAB PO HS for 30 Days, #30 TAB 5 Refills Warfarin Sodium (Coumadin) 5 Mg Tab 5 MG PO FRIDAYS Warfarin Sodium (Coumadin) 5 Mg Tab 2.5 MG PO [id number], TAB take all days but fridays Admission Information HPI (per Admitting provider): 81 yo F who presents to the ER via EMS for chest pain. The pain was describes as a pressure and was centrally located in her chest. It came on while she was sitting watching TV. She notified her family who called EMS around 130. She was given Nitro and ASA 324 on scene with complete resolution of her pain which did not return. She was stable at that time and continues to be stable in the ER. Her pain is reproducible on exam. It was not radiating, but she does describe feeling this pain after her walks that she takes regularly. She notes the pain comes on after her walk is complete and occurs roughly 3 times in a week. This is a new development over the past month. She has no h/o CAD and denies pain prior to this. She is a non-smoker and has no other risk factors aside from age. She is functional at baseline and lives alone. Associated symptoms with the pain include some diaphoresis and nausea but she denies any SOB , lightheadedness or vomiting. ROS was otherwise negative. She has a h/o unprovoked PE diagnosed 3-4 years ago and is on coumadin for this now. Physical Exam (per Admitting): General Appearance: WD/WN, no apparent distress Head: normocephalic, atraumatic Eyes: normal inspection, PERRL, sclerae normal ENT: normal ENT inspection, pharynx normal Neck: supple, no adenopathy, trachea midline Respiratory/Chest: lungs clear, normal breath sounds, no respiratory distress, no accessory muscle use, + pertinent finding (Chest TTP in parasternal area) Cardiovascular: regular rate, rhythm, no edema, no gallop, no JVD, no murmur , normal peripheral pulses Abdomen/GI: normal bowel sounds, non tender, soft Extremities/Musculoskelatal: normal inspection, no pedal edema, normal range of motion 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 The pain was describes as a pressure and was centrally located in her chest. It came on while she was sitting watching TV. She notified her family who called EMS around 130. She was given Nitro and ASA 324 on scene with complete resolution of her pain which did not return Troponins negative x 3 STRESS STUDY: * Normal pharmacologic stress echocardiogram. No echocardiographic or EKG evidence of myocardial ischemia having achieved heart rate adequate for diagnostic purposes. * No symptoms suggestive of angina were induced. * Transient supraventricualar tachycardia was observied at peak pharmacologic stress that resolved in the post stress recovery interval. * RESTING STUDY: * There is mild concentric left ventricular hypertrophy. * Ejection Fraction = 60-65%. * There is no significant valvular heart disease. Diagnosis of: Non Cardiac Chest pain Discharge appointments Patient to be discharged with prescription for omeprazole in case symptoms were from gastroesophageal reflux disease (GERD). Patient is asked to return to the emergency room if sudden worsening of chest pain symptoms, shortness of breath, fever, or loss of consciousness Follow up appointments 04/04/2017 2:00 PM Alison Bangura MD [facility] 04/09/2017 9:30 AM [facility] [place] [facility] 04/10/2017 7:00 AM [facility] [place] [place] [facility] [place] Total time spent on discharge = This includes examination of the patient, discharge planning, medication reconciliation, and communication with other providers. Discharge Instructions see above
[2017-03-30] MEDS ORDERED: SIMVASTATIN 10 MG TAB PO SCH (21:00)
[2017-03-31] MEDS ORDERED: WARFARIN SOD 2.5 MG TAB PO SCH (16:00)
== END 2017-03-30 17:51 | disposition home or self-care (01) ==
LOC: EDBD 21:53 → C.EDC 21:55 → C.2T 03-30 00:51 → ENRESERV 03-30 00:58
PROVIDERS: ADMIT Hospitalist; ATTEND Hospitalist
DX: R07.89 Other chest pain (principal); Z86.711 Personal history of pulmonary embolism; G30.9 Alzheimer's disease, unspecified; F41.9 Anxiety disorder, unspecified; F32.9 Major depressive disorder, single episode, unspecified; Z85.3 Personal history of malignant neoplasm of breast; Z90.12 Acquired absence of left breast and nipple; Z98.890 Other specified postprocedural states; Z79.01 Long term (current) use of anticoagulants; Z79.899 Other long term (current) drug therapy; Z82.49 Family history of ischemic heart disease and other diseases of the circulatory system; Z83.3 Family history of diabetes mellitus; Z80.9 Family history of malignant neoplasm, unspecified; Z83.6 Family history of other diseases of the respiratory system